=== PATIENT | male | born 1985 | race Caucasian/White ===

== ENCOUNTER 2019-02-05 07:18 | Day surgery (SDC) | payer BC ==
[~2019-02-05] VITALS: Ht 188 cm; Wt 88.5 kg
[~2019-02-05 07:18] MED LIST: ACYC200 PO
--- NOTE | 2019-02-05 07:54 | NUR ---
INTO [facility] ADMISSION STARTED. Ambulatory in Day Surgery History, Chart, Medications and Allergies reviewed before start of procedure.Lungs clear T/O to Auscultation. Patient confirms NPO status and agrees with scheduled surgery.
--- NOTE | 2019-02-05 11:14 | NUR ---
RECEIVED REPORT FROM CAROL DOLAN. WILL ASSUME CARE OF PT.
--- NOTE | 2019-02-05 11:19 | NUR ---
PT LLQ DRSG CDI WITH GAUZE/TAPE. PT IS EATING PUDDING AND REQUEST PAIN MED BEFORE D/C.
--- NOTE | 2019-02-05 11:43 | NUR ---
Discharge instructions reviewed with patient. Patient verbalizes understanding. Copy given to patient to take home. HAS RX. PT STATES NO CONCERNS. Patient States Post-Procedure ride home has been arranged. PT STABLE AND WILL BE D/C. Discharged via wheelchair to private car for ride home.
== END 2019-02-05 22:36 | disposition home or self-care (01) ==
LOC: ORSCMMR 07:18 → ORD 08:45 → ORSCMMR 08:45
PROVIDERS: Surgery
PROC: 0YU60JZ Supplement Left Inguinal Region with Synthetic Substitute, Open Approach (ICD-10-PCS; principal; 2019-02-05 08:45)
DX: K40.90 Unilateral inguinal hernia, without obstruction or gangrene, not specified as recurrent (principal); F17.210 Nicotine dependence, cigarettes, uncomplicated
CPT/HCPCS: C1781; J0690; J1100; J1885; J2250; J2405; J3010; J7120

== ENCOUNTER 2019-09-27 06:02 | Day surgery (SDC) | payer BC ==
[~2019-09-27] VITALS: Ht 188 cm; Wt 87.1 kg
--- NOTE | 2019-09-27 07:34 | NUR ---
Ambulatory in Day Surgery. Surgical site prepped with 2% Chlorhexidine cloth wipe. History, Chart, Medications and Allergies reviewed before start of procedure.Lungs clear T/O to Auscultation. Patient confirms NPO status and agrees with scheduled surgery. Patient States Post-Procedure ride home has been arranged. Patient reports completing Chlorhexadine shower X2 prior to admission to hospital.
--- NOTE | 2019-09-27 09:26 | NUR ---
DENIES PAIN AND NAUSEA. NO C/O VERBALIZED.
--- NOTE | 2019-09-27 09:29 | NUR ---
GAUZE DRESSING COVERED BY CLEAR OCCLUSIVE DRESSING TO RIGHT GROIN, CLEAN, DRY AND INTACT WITH NO VISIBLE DRAINAGE, SWELLING, ERYTHEMA OR BRUISING NOTED. PATIENT DRINING PEPSI AND TOLERATING.
--- NOTE | 2019-09-27 09:56 | NUR ---
Discharge instructions reviewed with patient. Patient verbalizes understanding. Copy given to patient to take home. Patient States Post-Procedure ride home has been arranged with his .
--- NOTE | 2019-09-27 10:05 | NUR ---
1000- UP TO DRESS. GAIT STEADY. DENIES DIZZINESS. VSS. NO C/O. PRESCRIPTION GIVEN TO TO FILL.
--- NOTE | 2019-09-30 12:57 | NUR ---
09/30/19 1257 Rosalina Self VERIFICATIONS: EDIT CHART.
== END 2019-09-27 10:05 | disposition home or self-care (01) ==
LOC: ORSCMMR 06:02 → ORD 07:30 → ORSCMMR 10:05
PROVIDERS: Surgery
PROC: 0YU50JZ Supplement Right Inguinal Region with Synthetic Substitute, Open Approach (ICD-10-PCS; principal; 2019-09-27 07:30)
DX: K40.90 Unilateral inguinal hernia, without obstruction or gangrene, not specified as recurrent (principal)
CPT/HCPCS: C1781; J0690; J1100; J1885; J2250; J2405; J2704; J3010; J7120